=== PATIENT | female | born 1995 | race Two or more races ===

== ENCOUNTER 2023-06-26 19:34 | Emergency (ER) | payer OTHER ==
[~2023-06-26] VITALS: Ht 149.9 cm; Wt 54.4 kg
[2023-06-26 20:22] LABS: HEMATOCRIT 34.4 % (36.0-45.00); HEMOGLOBIN 12.3 g/dL (12.0-15.00); MEAN CELL VOLUME 92.2 fL (80.00-100.00); MEAN CORPUSCULAR HEMOGLOBIN 32.8 pg (27.00-32.0); MEAN CORPUSCULAR HGB CONC 35.6 g/dl (32.0-36.0); PLATELET COUNT 232 K/uL (150-450); RED BLOOD COUNT 3.73 M/uL (4.00-6.00); RED CELL DISTRIBUTION WIDTH 14.3 % (11.5-14.5)
[2023-06-26 20:23] LABS: URINE APPEARANCE Clear; URINE BILIRRUBIN Negative (NEGATIVE); URINE BLOOD Negative; URINE COLOR Yellow; URINE GLUCOSE Negative (NEGATIVE); URINE LEUKOCYTE Negative; URINE NITRATE Negative; URINE PROTEIN Negative (NEGATIVE); URINE UROBILINOGEN 0.2 E.U./dl
[2023-06-26 20:24] LABS: URINE BACTERIA 697.8 uL (0.0-1933); URINE EPITHELIAL CELLS 8.7 uL (0.0-38.8); URINE WBC 11.8 uL (0.0-23.2)
[2023-06-26 20:52] LABS: URINE RBC 0.8 uL (0.0-20.8)
== END 2023-06-26 21:37 | disposition home or self-care (01) ==
LOC: ER 19:35
PROVIDERS: Emergency Medicine
DX: O46.8X2 Other antepartum hemorrhage, second trimester (principal); Z3A.08 8 weeks gestation of pregnancy; Z88.8 Allergy status to other drugs, medicaments and biological substances

== ENCOUNTER 2024-01-28 14:45 | Inpatient (IN) | payer OTHER ==
[~2024-01-28] VITALS: Ht 121.9 cm; Wt 3.2 kg
[2024-02-02 03:11] VITALS: BP 110/66
[2024-02-02] MEDS ORDERED: RINGERS SOLUTION,LACTATED 1,000 ML IV SCH ×3 (04:00→21:45)
[2024-02-02] MEDS ORDERED: PRENATAL TABLE1 EAC1 PO (04:23)
[2024-02-02 06:38] LABS: HEMATOCRIT 33.5 % (36.0-45.00); HEMOGLOBIN 11.5 g/dL (12.0-15.00); MEAN CELL VOLUME 94.4 fL (80.00-100.00); MEAN CORPUSCULAR HEMOGLOBIN 32.3 pg (27.00-32.0); MEAN CORPUSCULAR HGB CONC 34.2 g/dl (32.0-36.0); PLATELET COUNT 191 K/uL (150-450); RED BLOOD COUNT 3.55 M/uL (4.00-6.00)
[2024-02-02 06:56] LABS: INR < 0.93; PARTIAL THROMBOPLASTIN TIME 25.5 SECONDS (22.0-34.0); PROTHROMBIN TIME 9.8 SECONDS (9.0-11.5)
[2024-02-02 07:00] LABS: ALBUMIN 2.7 gm/dL (3.4-5.0); BILIRUBIN TOTAL 0.56 mg/dL (0.3-1.2); CALCIUM 9.2 mg/dL (8.5-10.1); CREATININE SERUM 0.6 mg/dL (0.55-1.02); GFR 119.92; GLOBULINA 3.7 G/DL (2.4-3.5); POTASSIUM 4.11 mEq/L (3.5-5.1); TOTAL PROTEIN 6.4 gm/dL (6.4-8.2)
[2024-02-02 07:25] VITALS: BP 138/72
[2024-02-02] MEDS ORDERED: OXYTOCIN 20 UNITS/500ML RL PIGGYBAG IV SCH (09:15)
[2024-02-02] MEDS ORDERED: OXYTOCIN 500 ML IV SCH (09:30)
[2024-02-02 10:44] VITALS: BP 126/79
[2024-02-02] MEDS ORDERED: MORPHINE SULFATE 4 MG/ML VIAL IV ONE ×4 (11:30→19:30)
[2024-02-02 13:02] VITALS: BP 129/82
[2024-02-02 15:20] VITALS: BP 132/71
[2024-02-02] MEDS ORDERED: CEFOXITIN SODIUM 2,000 MG VIAL IV STA (16:28)
[2024-02-02] MEDS ORDERED: CITRIC ACID/SODIUM CITRATE 30 ML BLIST.PACK PO NR (16:30)
[2024-02-02] MEDS ORDERED: KETOROLAC TROMETHAMINE 30 MG VIAL IM ONE ×2 (20:00)
[2024-02-02] MEDS ORDERED: OXYTOCIN 1,000 ML IV ONE (20:15)
[2024-02-02 21:19] VITALS: BP 123/72
[2024-02-02] MEDS ORDERED: PROMETHAZINE HCL 25 MG/ML AMPUL IM PRN (21:45)
[2024-02-02] MEDS ORDERED: MEPERIDINE HCL/PF 50 MG/ML VIAL IM PRN (21:45)
[2024-02-02] MEDS ORDERED: KETOROLAC TROMETHAMINE 10 MG TABLET PO SCH (21:45)
[2024-02-02] MEDS ORDERED: CEFAZOLIN SODIUM 1,000 MG VIAL IV SCH (21:46)
[2024-02-02] MEDS ORDERED: SIMETHICONE 125 MG CAPSULE PO SCH (21:47)
[2024-02-02] MEDS ORDERED: ERYTHROMYCIN BASE OPHT 1GM EACH TUBE OP ONE (22:45)
[2024-02-02] MEDS ORDERED: OXYTOCIN 10 UNITS/ML VIAL IV ONE (22:45)
[2024-02-03 00:01] LABS: HEMATOCRIT 31.6 % (36.0-45.00); HEMOGLOBIN 11.4 g/dL (12.0-15.00); MEAN CELL VOLUME 93.4 fL (80.00-100.00); MEAN CORPUSCULAR HEMOGLOBIN 33.6 pg (27.00-32.0); MEAN CORPUSCULAR HGB CONC 35.9 g/dl (32.0-36.0); PLATELET COUNT 174 K/uL (150-450); RED BLOOD COUNT 3.39 M/uL (4.00-6.00); RED CELL DISTRIBUTION WIDTH 13.9 % (11.5-14.5)
[2024-02-03 00:16] VITALS: BP 107/71
[2024-02-03] MEDS ORDERED: CEFAZOLIN SODIUM 1,000 MG VIAL IV ONE (01:00)
[2024-02-03 07:52] LABS: HEMATOCRIT 29.3 % (36.0-45.00); HEMOGLOBIN 10.5 g/dL (12.0-15.00); MEAN CELL VOLUME 93.9 fL (80.00-100.00); MEAN CORPUSCULAR HEMOGLOBIN 33.8 pg (27.00-32.0); PLATELET COUNT 164 K/uL (150-450); RED BLOOD COUNT 3.12 M/uL (4.00-6.00); RED CELL DISTRIBUTION WIDTH 13.8 % (11.5-14.5)
[2024-02-03 08:00] VITALS: BP 109/73
[2024-02-03] MEDS ORDERED: MEPERIDINE HCL/PF 25 MG,MEPERIDINE HCL/PF 50 MG IM PRN (09:00)
[2024-02-03] MEDS ORDERED: FF) RHO(D) IMMUNE GLOBULIN (POM) IM ONE (11:30)
[2024-02-03] MEDS ORDERED: OxyCODONE HCL/APAP UD (PERCOCET) PO SCH (13:00)
[2024-02-03 16:00] VITALS: BP 109/70
[2024-02-03 23:57] VITALS: BP 111/68
[2024-02-04 07:58] VITALS: BP 119/75
[2024-02-04 12:00] VITALS: BP 118/68
[2024-02-04] MEDS ORDERED: KETOROLAC TROMETHAMINE 10 MG TABLET PO SCH (12:00)
[2024-02-04] MEDS ORDERED: OXYC1TAB9 PO (12:05)
[2024-02-04] MEDS ORDERED: KETO10TA2 PO (12:05)
== END 2024-02-04 13:17 | disposition home or self-care (01) | DRG 788 ==
LOC: LDR 02-02 03:45 → OB/GYN 02-02 18:58 → LDR 02-04 14:45
PROVIDERS: ADMIT Obstetrics & Gynecology Maternal & Fetal Medicine; ATTEND Obstetrics & Gynecology Maternal & Fetal Medicine
PROC: 0UB90ZZ Excision of Uterus, Open Approach (ICD-10-PCS; 2024-02-02)
PROC: 4A1HXCZ Monitoring of Products of Conception, Cardiac Rate, External Approach (ICD-10-PCS; 2024-02-02)
PROC: 10D00Z1 Extraction of Products of Conception, Low, Open Approach (ICD-10-PCS; principal; 2024-02-02 16:00)
DX: O33.8 Maternal care for disproportion of other origin (principal); O34.13 Maternal care for benign tumor of corpus uteri, third trimester; D25.2 Subserosal leiomyoma of uterus; Z3A.39 39 weeks gestation of pregnancy; Z37.0 Single live birth; Z20.822 Contact with and (suspected) exposure to COVID-19

== ENCOUNTER 2024-01-31 16:58 | Outpatient (CLI) | payer OTHER | END 2024-01-31 17:41 | disposition home or self-care (01) | LOC: NST 16:58 | PROVIDERS: ATTEND Obstetrics & Gynecology Maternal & Fetal Medicine | DX: Z34.83 Encounter for supervision of other normal pregnancy, third trimester (principal) ==

== ENCOUNTER 2024-03-12 02:46 | Emergency (ER) | payer OTHER ==
[~2024-03-12] VITALS: Ht 149.9 cm; Wt 58.1 kg
[~2024-03-12 02:46] MED LIST: KETO10TA2 PO; OXYC1TAB9 PO; PRENATAL TABLE1 EAC1 PO
[2024-03-12] MEDS ORDERED: FAMOTIDINE/PF 20 MG/2 ML VIAL IV PUSH STA (03:32)
[2024-03-12] MEDS ORDERED: PROMETHAZINE HCL 50 MG/ML AMPUL IM STA (03:32)
[2024-03-12] MEDS ORDERED: 0.9 % SODIUM CHLORIDE 1,000 ML IV ONE (03:45)
[2024-03-12 03:58] LABS: HEMATOCRIT 37.9 % (36.0-45.00); HEMOGLOBIN 13.2 g/dL (12.0-15.00); MEAN CELL VOLUME 90.4 fL (80.00-100.00); MEAN CORPUSCULAR HEMOGLOBIN 31.6 pg (27.00-32.0); MEAN CORPUSCULAR HGB CONC 34.9 g/dl (32.0-36.0); PLATELET COUNT 292 K/uL (150-450); RED BLOOD COUNT 4.19 M/uL (4.00-6.00); RED CELL DISTRIBUTION WIDTH 13.2 % (11.5-14.5)
[2024-03-12 04:26] LABS: ALBUMIN 3.9 gm/dL (3.4-5.0); BILIRUBIN TOTAL 0.82 mg/dL (0.3-1.2); BILIRUBIN,CONJUGATED 0.3 mg/dL (0.0-0.2); BILIRUBIN,UNCONJUGATED 0.52 mg/dL (0.0-0.6); CALCIUM 9.3 mg/dL (8.5-10.1); CREATININE SERUM 0.76 mg/dL (0.55-1.02); GFR 91.29; GLOBULINA 4.1 G/DL (2.4-3.5); POTASSIUM 3.51 mEq/L (3.5-5.1)
[2024-03-12 05:11] LABS: PARTIAL THROMBOPLASTIN TIME 29.7 SECONDS (22.0-34.0); PROTHROMBIN TIME 10.9 SECONDS (9.0-11.5)
[2024-03-12 05:20] LABS: URINE APPEARANCE Clear; URINE BACTERIA 53.8 uL (0.0-1933); URINE BILIRRUBIN Negative (NEGATIVE); URINE BLOOD Negative; URINE COLOR Yellow; URINE EPITHELIAL CELLS 8.2 uL (0.0-38.8); URINE GLUCOSE Negative (NEGATIVE); URINE KETONE Trace (NEGATIVE); URINE LEUKOCYTE Moderate; URINE NITRATE Negative; URINE PROTEIN Negative (NEGATIVE); URINE UROBILINOGEN 0.2 E.U./dl; URINE WBC 31.7 uL (0.0-23.2)
[2024-03-12 09:46] LABS: ALBUMIN 3.2 gm/dL (3.4-5.0); BILIRUBIN TOTAL 0.93 mg/dL (0.3-1.2); BILIRUBIN,CONJUGATED 0.31 mg/dL (0.0-0.2); BILIRUBIN,UNCONJUGATED 0.62 mg/dL (0.0-0.6); TOTAL PROTEIN 6.8 gm/dL (6.4-8.2)
== END 2024-03-12 10:34 | disposition home or self-care (01) ==
LOC: ER 02:49
PROVIDERS: General Practice
DX: R53.81 Other malaise (principal); Z87.19 Personal history of other diseases of the digestive system; Z88.8 Allergy status to other drugs, medicaments and biological substances

== ENCOUNTER → 2025-01-03 | Emergency (ER) | payer OTHER ==
[~2025-01-03] VITALS: Ht 147.3 cm; Wt 58.1 kg
[~2025-01-03] MED LIST changes: +KETOROLAC TROMETHAMINE 30 MG VIAL IM ONE; +KETOROLAC TROMETHAMINE 30 MG VIAL ONE; +ORPHENADRINE CITRATE 30 MG/ML AMPUL IM ONE; +ORPHENADRINE CITRATE 30 MG/ML AMPUL ONE
[2025-01-03 18:37] LABS: BASO % 0.4 % (0.1-1.2); EOS # 0.07 (0.04-0.54); EOS % 0.9 % (0.7-7.0); LYMPH # 2.37 (1.18-3.74); LYMPH % 31.4 % (19.3-53.1); MEAN PLATELET VOLUME 10.50 fl (9.4-12.4); MONO # 0.77 (0.24-0.82); MONO % 10.2 % (4.7-12.5); NEUT # 4.29 (1.56-6.13); NEUT % 57.0 % (34.0-71.1); RED CELL DISTRIBUTION WIDTH 13.2 % (11.6-14.4)
[2025-01-03 19:08] LABS: ALT/SGPT 26.0 U/L (12-78); AST/SGOT 14.0 U/L (15-37); BILIRUBIN TOTAL 0.25 mg/dL (0.3-1.2); BUN CREA RATIO 28.0 (7.0-25.0); CREATININE SERUM 0.69 mg/dL (0.55-1.02); GFR 101.3; GLOBULINA 3.2 G/DL (2.4-3.5); GLUCOSE FASTING 91.0 mg/dL (65-100); OSMOLALITY SERUM 285.0 MOSM/KG (275-295)
[2025-01-03 20:30] LABS: URINE APPEARANCE Clear; URINE BILIRRUBIN Negative (NEGATIVE); URINE BLOOD Negative; URINE COLOR Yellow; URINE GLUCOSE Negative (NEGATIVE); URINE KETONE Negative (NEGATIVE); URINE LEUKOCYTE Negative; URINE NITRATE Negative; URINE PROTEIN Negative (NEGATIVE); URINE UROBILINOGEN 0.2 E.U./dl
[2025-01-03 20:33] LABS: URINE EPITHELIAL CELLS 2.6 uL (0.0-38.8)
[2025-01-03 21:00] LABS: URINE BACTERIA 1.1 uL (0.0-1933); URINE CAST 0.00 uL (0.0-1.40); URINE RBC 0.1 uL (0.0-20.8); URINE WBC 0.7 uL (0.0-23.2)
== END | disposition home or self-care (01) ==
LOC: ER 16:35
PROVIDERS: Student in an Organized Health Care Education/Training Program
DX: M62.838 Other muscle spasm (principal); N83.299 Other ovarian cyst, unspecified side; R10.21 Pelvic and perineal pain right side; Z88.8 Allergy status to other drugs, medicaments and biological substances